=== PATIENT | female | born 1980 | race Hispanic/Latino ===

== ENCOUNTER 2016-05-30 14:31 | Emergency (ER) | payer SELFPAY ==
[2016-05-30 15:11] VITALS: BP 150/97
[2016-05-30] MEDS ORDERED: NORCO 5/325 PO ONE (16:58)
[2016-05-30] MEDS ORDERED: MOTRIN PO ONE (16:58)
--- NOTE | 2016-05-30 17:13 | XRay Report ---
Left ankle: There is suspicion of lateral malleolus swelling however the patient has generally soft tissues. There is no fracture and no dislocation. The bones are well-mineralized. Impression: Suspicion of lateral soft tissue injury.
--- NOTE | 2016-05-30 18:53 | Emergency Department Report ---
Entered by BAM OAKES, acting as scribe for SUKHWINDER DUARTE NP. ED Lower Extremity HPI - General Chief Complaint: Extremity Injury, Lower Stated Complaint: LFT ANKLE INJURY Time Seen by Provider: 05/30/16 16:48 Source: patient Mode of arrival: Ambulatory Limitations: No Limitations - History of Present Illness Initial Comments: 36 year old female with Hx of left ankle fracture presents to the ED for evaluation of left ankle pain and swelling secondary to injury today. Patient reports she was walking on sidewalk when she stumbled and fell, hitting her chin on the pavement and landing with left ankle under her body. She reports she was able to walk with limp after injury. Denies LOC, tingling, and numbness. MD Complaint: ankle injury (left) -: This afternoon Injury: Ankle: Left Place: street/outdoors Worsens With: weight bearing, movement, palpation Context: fall Associated Symptoms: swelling, ambulatory (with limp and pain). denies: numbness, tingling - Related Data Previous Rx's Medication Instructions Recorded Last Taken Type HYDROcodone/APAP 7.5-325 [[place] 1 each PO Q6HR PRN #20 tablet 11/25/14 Unknown Rx 7.5/325] Ibuprofen [Motrin] 600 mg PO Q8H PRN #40 tablet 11/25/14 Unknown Rx Ibuprofen [Motrin 800 MG tab] 800 mg PO Q8HR PRN #30 tablet 05/30/16 Unknown Rx Allergies Allergy/AdvReac Type Severity Reaction Status Date / Time iodine Allergy childhood Verified 11/25/14 12:54 allergy ED Review of Systems Comment: All other systems reviewed and negative Musculoskeletal: other (left ankle pain and swelling) Neurological: denies: weakness, numbness, paresthesias, other (LOC) ED Past Medical Hx - Past Medical History Hx Congestive Heart Failure: No Hx Diabetes: No Hx Asthma: No Hx COPD: No 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" - Surgical History Hx Appendectomy: Yes Hx Breast Surgery: Yes (BREAST AUGMENTATION) Additional Surgical History: ureter surg as a baby - Social History Smoking Status: Current Every Day Smoker Substance Use Type: None - Medications Home Medications: Home Medications Medication Instructions Recorded Confirmed Last Taken Type HYDROcodone/APAP 7.5-325 [[place] 1 each PO Q6HR PRN #20 tablet 11/25/14 Unknown Rx 7.5/325] Ibuprofen [Motrin] 600 mg PO Q8H PRN #40 tablet 11/25/14 Unknown Rx Ibuprofen [Motrin 800 MG tab] 800 mg PO Q8HR PRN #30 tablet 05/30/16 Unknown Rx ED Physical Exam - General Limitations: No Limitations General appearance: alert, in no apparent distress - Head Head exam: Present: normocephalic, other (abrasion to chin) - ENT ENT exam: Present: other (no malocclusion or loose teeth) - Respiratory Respiratory exam: Present: normal lung sounds bilaterally. Absent: respiratory distress, wheezes, rales, rhonchi, stridor - Cardiovascular Cardiovascular Exam: Present: regular rate, normal rhythm, normal heart sounds. Absent: systolic murmur, diastolic murmur, rubs, gallop - Expanded Cardiovascular Exam Expanded Peripheral pulses: 2+: Posterior Tibialis (L), Dorsalis Pedis (L) - Expanded Lower Extremity Exam Left Knee exam: Present: normal inspection, full ROM, full knee extension. Absent: tenderness, swelling, abrasion, laceration, ecchymosis, deformity, crepidus, dislocation, erythema, effusion, pain w/ pronation/supination, posterior draw sign, pain/laxity with valgus, pain/laxity with varus Lower Leg exam: Present: normal inspection, full ROM. Absent: tenderness, swelling, abrasion, laceration, ecchymosis, deformity, crepidus, dislocation, erythema, palpable cord, Camilo's sign Ankle exam: Present: tenderness (to lateral aspect of left ankle), swelling (to lateral aspect of left ankle). Absent: full ROM (limited range of motion secondary to pain) Foot/Toe exam: Present: normal inspection, full ROM Neuro vascular tendon exam: Present: no vascular compromise. Absent: pulse deficit, abnormal cap refill, sensory deficit, tendon deficit, extremity cold to touch, pallor, abnormal 2-point discrimination, decreased fine/light touch, foot drop, peroneal nerve deficit Gait: Positive: not tested/not observed - Neurological Exam Neurological exam: Present: alert, oriented X3. Absent: motor sensory deficit - Psychiatric Psychiatric exam: Present: normal affect, normal mood - Skin Skin exam: Present: warm, dry, intact, normal color. Absent: rash ED Course Vital Signs 05/30/16 15:02 Temperature 97.9 F Pulse Rate 98 H Respiratory 18 Rate Blood Pressure 150/97 O2 Sat by Pulse 100 Oximetry - Reevaluation(s) Reevaluation #1: 05/30/16 17:05 pain medication, analgesic and radiology study ordered ED Lower Extremity MDM - Radiology Data Radiology results: image reviewed Left ankle: There is suspicion of lateral malleolus swelling however the patient has generally soft tissues. There is no fracture and no dislocation. The bones are well-mineralized. Impression: Suspicion of lateral soft tissue injury. - Medical Decision Making During the course of ED, ice pack, analgesic, pain medication and radiology study were ordered. The radiology study revealed suspicion of lateral malleolus swelling however the patient has generally soft tissues. There is no fracture and no dislocation. The bones are well-mineralized. She was placed in a ankle stirrup splint, crutches and analgesic, instructed to follow up with the selective referral given at discharge, she verbalized understanding - Differential Diagnosis Left Ankle Pain, Left Ankle Fracture ED Disposition Clinical Impression: Ankle pain, left Disposition: DISCHARGED TO HOME OR SELFCARE Is pt being admited?: No Does the pt Need Aspirin: No Condition: Stable Instructions: Ankle Sprain (ED) Additional Instructions: Take medication as directed. Wear ankle splint for comfort. Follow up with the selective referral given at discharge. Return back to the ED for worsening symptoms or concerns Prescriptions: Ibuprofen [Motrin 800 MG tab] 800 mg PO Q8HR PRN #30 tablet PRN Reason: Pain Referrals: PRIMARY CARE, [Primary Care Provider] - 3-5 Days JESSY OLSEN MD [Staff Physician] - 3-5 Days GIOVANA AJ MD [Staff Physician] - 3-5 Days Forms: Work/School Release Form(ED) Time of Disposition: 17:47 This documentation as recorded by the CHAMP holder REBEKAH,accurately reflects the service I personally performed and the decisions made by GERALD mcpherson SABRENA D, NP.
== END 2016-05-30 17:57 | disposition home or self-care (01) ==
LOC: ED 14:31
DX: M25.572 Pain in left ankle and joints of left foot (principal); F17.200 Nicotine dependence, unspecified, uncomplicated
CPT/HCPCS: 99283